=== PATIENT | female | born 1955 | race Caucasian/White ===

== ENCOUNTER 2020-11-23 21:00 | Inpatient (IN) ==
[2020-11-23] MEDS ORDERED: SODIUM CHLORIDE 0.9% 1,000 ML IV STA ×2 (21:35→23:14)
[2020-11-23 21:44] LABS: Basophils # 0.1 10*3/uL (0.0-0.2); Basophils % 0.3 % (0.0-0.8); Hematocrit 35.4 VOL% (35.7-47.0); Hemoglobin 11.7 GM/DL (12.0-16.0); Immature Granulocytes % 0.5 %; Immature Granulocytes Absolute 0.09 #; Lymphocytes # 1.4 10*3/uL (1.4-4.0); Lymphocytes % 7.2 % (21.3-54.2); Mean Corpuscular HGB Conc 33.1 GM/DL (32-36); Mean Corpuscular Volume 91.5 FL (87-102); Mean Platelet Volume 11.3 FL (9.6-12.0); Monocytes % 5.9 % (1.7-12.7); Neutrophils % 86.1 % (38.7-73.9); Platelet Count 201 T/CUMM (130-400); Red Blood Count 3.87 MC/CUMM (3.8-5.5); Red Cell Distribution Width 11.8 % (9.3-17.3); White Blood Count 19.3 T/CUMM (4-12)
[2020-11-23 22:04] LABS: INR 1.1; PT Patient Result 11.8 SECS (9.8-11.9); Partial Thromboplastin Time 25.9 SECS (23.9-33.8)
[2020-11-23 22:06] LABS: Albumin 3.6 G/DL (3.4-5.0); Bilirubin,Total 0.4 MG/DL (0.2-1.0); Calcium 8.6 MG/DL (8.5-10.1); Osmolality,Calculated 290.1 MOS/KG (273-304); Potassium 4.1 MMOL/L (3.5-5.1); Total Protein 6.3 G/DL (6.4-8.2)
[2020-11-23 23:25] LABS: Hematocrit 30.8 VOL% (35.7-47.0); Hemoglobin 10.2 GM/DL (12.0-16.0)
[2020-11-23] MEDS ORDERED: MORPHINE 4 MG/1 ML VIAL IV PRN (23:37)
[2020-11-24] MEDS: DEXTROSE 5% NACL 0.45% 1,000 ML IV SCH ×2 (03:22→10:27)
[2020-11-24] MEDS ORDERED: DEXTROSE 50% 25 GM/50 ML VIAL IV PRN (04:04)
[2020-11-24] MEDS ORDERED: GLUCAGON 1 MG VIAL IM PRN (04:04)
[2020-11-24 06:22] LABS: Basophils % 0.2 % (0.0-0.8); Hematocrit 28.2 VOL% (35.7-47.0); Hemoglobin 9.6 GM/DL (12.0-16.0); Immature Granulocytes % 0.5 %; Immature Granulocytes Absolute 0.06 #; Lymphocytes # 0.8 10*3/uL (1.4-4.0); Lymphocytes % 6.5 % (21.3-54.2); Mean Corpuscular Volume 92.2 FL (87-102); Mean Platelet Volume 11.8 FL (9.6-12.0); Monocytes % 6.4 % (1.7-12.7); Neutrophils % 86.4 % (38.7-73.9); Platelet Count 170 T/CUMM (130-400); Red Blood Count 3.06 MC/CUMM (3.8-5.5); Red Cell Distribution Width 11.9 % (9.3-17.3); White Blood Count 12.5 T/CUMM (4-12)
[2020-11-24 06:38] LABS: Bilirubin,Total 0.7 MG/DL (0.2-1.0); Calcium 7.9 MG/DL (8.5-10.1); Osmolality,Calculated 291.1 MOS/KG (273-304); Potassium 4.6 MMOL/L (3.5-5.1); Total Protein 5.7 G/DL (6.4-8.2)
[2020-11-24] MEDS: DOCUSATE SODIUM 100 MG CAPSULE PO SCH ×2 (08:45→20:26)
[2020-11-24] MEDS: PANTOPRAZOLE 40 MG TABLET PO SCH (08:45)
[2020-11-24] MEDS: LACTATED RINGERS 1,000 ML IV SCH ×2 (08:45→16:45)
[2020-11-24] MEDS: INSULIN REGULAR 100 UNIT/ML SUBCUT SCH ×4 (08:45→20:50)
[2020-11-24] MEDS ORDERED: ATORVASTATIN 40 MG TABLET PO SCH (21:00)
[2020-11-24] MEDS ORDERED: LACTATED RINGERS 1,000 ML IV ONE (23:39)
[2020-11-24 23:55] LABS: Hematocrit 23.6 VOL% (35.7-47.0); Hemoglobin 7.6 GM/DL (12.0-16.0)
[2020-11-25] MEDS ORDERED: SODIUM CHLORIDE 0.9% 1,000 ML IV PRN (00:22)
[2020-11-25] MEDS: INSULIN REGULAR 100 UNIT/ML SUBCUT SCH ×4 (07:58→20:37)
[2020-11-25] MEDS: PANTOPRAZOLE 40 MG TABLET PO SCH (08:17)
[2020-11-25] MEDS: LACTATED RINGERS 1,000 ML IV SCH ×2 (08:17)
[2020-11-25] MEDS: DOCUSATE SODIUM 100 MG CAPSULE PO SCH ×2 (08:17→20:25)
[2020-11-25] MEDS ORDERED: HYDROmorphone 2 MG/1 ML VIAL IV PRN ×2 (10:00)
[2020-11-25] MEDS: KETOROLAC 15 MG/1 ML VIAL IV SCH ×3 (11:43→22:02)
[2020-11-25 12:57] LABS: Basophils % 0.3 % (0.0-0.8); Eosinophils % 0.3 % (0.00-10.9); Immature Granulocytes % 0.7 %; Immature Granulocytes Absolute 0.06 #; Lymphocytes # 2.3 10*3/uL (1.4-4.0); Lymphocytes % 24.8 % (21.3-54.2); Mean Corpuscular HGB Conc 33.1 GM/DL (32-36); Mean Corpuscular Volume 92.7 FL (87-102); Mean Platelet Volume 11.2 FL (9.6-12.0); Monocytes % 7.7 % (1.7-12.7); Neutrophils % 66.2 % (38.7-73.9); Platelet Count 134 T/CUMM (130-400); Red Blood Count 3.58 MC/CUMM (3.8-5.5); Red Cell Distribution Width 12.8 % (9.3-17.3); White Blood Count 9.1 T/CUMM (4-12)
[2020-11-25 12:59] LABS: Hematocrit 33.2 VOL% (35.7-47.0)
[2020-11-25 13:10] LABS: Calcium 8.2 MG/DL (8.5-10.1); Osmolality,Calculated 289.6 MOS/KG (273-304); Potassium 4.7 MMOL/L (3.5-5.1)
[2020-11-25 13:15] LABS: Anisocytosis Slight; Platelet Estimate Adequate
[2020-11-25] MEDS: MONTELUKAST 10 MG TABLET PO SCH (20:25)
[2020-11-25] MEDS: ATORVASTATIN 40 MG TABLET PO SCH (20:25)
[2020-11-26] MEDS: KETOROLAC 15 MG/1 ML VIAL IV SCH ×4 (03:47→22:12)
[2020-11-26 05:57] LABS: Basophils % 0.5 % (0.0-0.8); Eosinophils # 0.1 10*3/uL (0.0-0.87); Eosinophils % 1.7 % (0.00-10.9); Hematocrit 27.4 VOL% (35.7-47.0); Hemoglobin 9.4 GM/DL (12.0-16.0); Immature Granulocytes % 0.7 %; Immature Granulocytes Absolute 0.04 #; Lymphocytes # 1.7 10*3/uL (1.4-4.0); Lymphocytes % 28.7 % (21.3-54.2); Mean Corpuscular HGB Conc 34.3 GM/DL (32-36); Mean Corpuscular Volume 89.5 FL (87-102); Mean Platelet Volume 11.3 FL (9.6-12.0); Monocytes % 8.8 % (1.7-12.7); Neutrophils % 59.6 % (38.7-73.9); Platelet Count 105 T/CUMM (130-400); Red Blood Count 3.06 MC/CUMM (3.8-5.5); Red Cell Distribution Width 12.8 % (9.3-17.3)
[2020-11-26 06:23] LABS: Calcium 8.2 MG/DL (8.5-10.1); Potassium 3.9 MMOL/L (3.5-5.1)
[2020-11-26] MEDS: INSULIN REGULAR 100 UNIT/ML SUBCUT SCH ×4 (08:17→20:44)
[2020-11-26] MEDS: DOCUSATE SODIUM 100 MG CAPSULE PO SCH ×2 (08:20→20:25)
[2020-11-26] MEDS: POLYETHYLENE GLYCOL POWDER 17 GM PACK PO SCH (08:20)
[2020-11-26] MEDS: PANTOPRAZOLE 40 MG TABLET PO SCH (08:20)
[2020-11-26] MEDS: ONDANSETRON 4 MG/2 ML VIAL IV PRN (18:46)
[2020-11-26] MEDS: ATORVASTATIN 40 MG TABLET PO SCH (20:24)
[2020-11-26] MEDS: MONTELUKAST 10 MG TABLET PO SCH (20:25)
[2020-11-27] MEDS: ONDANSETRON 4 MG/2 ML VIAL IV PRN ×3 (04:42→16:17)
[2020-11-27] MEDS: KETOROLAC 15 MG/1 ML VIAL IV SCH ×4 (04:42→22:10)
[2020-11-27 05:21] LABS: Hematocrit 30.9 VOL% (35.7-47.0); Hemoglobin 10.4 GM/DL (12.0-16.0)
[2020-11-27] MEDS: INSULIN REGULAR 100 UNIT/ML SUBCUT SCH ×4 (08:07→20:43)
[2020-11-27] MEDS: POLYETHYLENE GLYCOL POWDER 17 GM PACK PO SCH (09:31)
[2020-11-27] MEDS: DOCUSATE SODIUM 100 MG CAPSULE PO SCH ×2 (09:31→20:41)
[2020-11-27] MEDS: PANTOPRAZOLE 40 MG TABLET PO SCH (09:31)
[2020-11-27] MEDS: MONTELUKAST 10 MG TABLET PO SCH (20:40)
[2020-11-27] MEDS: ATORVASTATIN 40 MG TABLET PO SCH (20:40)
[2020-11-28] MEDS: KETOROLAC 15 MG/1 ML VIAL IV SCH ×2 (05:36→10:56)
[2020-11-28 05:38] LABS: Hematocrit 30.8 VOL% (35.7-47.0); Hemoglobin 10.3 GM/DL (12.0-16.0)
[2020-11-28] MEDS: DOCUSATE SODIUM 100 MG CAPSULE PO SCH (08:25)
[2020-11-28] MEDS: POLYETHYLENE GLYCOL POWDER 17 GM PACK PO SCH (08:25)
[2020-11-28] MEDS: PANTOPRAZOLE 40 MG TABLET PO SCH (08:26)
[2020-11-28] MEDS: INSULIN REGULAR 100 UNIT/ML SUBCUT SCH ×2 (08:34→11:44)
[2020-11-28] MEDS ORDERED: lisinopriL 10 MG TABLET PO SCH (09:00)
[2020-11-28 11:33] VITALS: BP 129/94
== END 2020-11-28 11:50 | disposition home or self-care (01) | DRG 200 ==
LOC: EDBD → EDUNIT# → N.ED 21:00 → N.EDINP 21:00 → N.CC 11-24 02:25 → N.5E 11-27 10:57
PROVIDERS: ADMIT Surgery; ATTEND Surgery

== ENCOUNTER 2021-03-11 06:02 | Inpatient (IN) ==
[2021-03-05 12:28] LABS: Basophils # 0.1 10*3/uL (0.0-0.2); Basophils % 1.1 % (0.0-0.8); Eosinophils # 0.1 10*3/uL (0.0-0.87); Eosinophils % 1.7 % (0.00-10.9); Hematocrit 39.8 VOL% (35.7-47.0); Hemoglobin 13.7 GM/DL (12.0-16.0); Immature Granulocytes % 0.4 %; Immature Granulocytes Absolute 0.02 #; Lymphocytes # 2.4 10*3/uL (1.4-4.0); Lymphocytes % 43.6 % (21.3-54.2); Mean Corpuscular HGB Conc 34.4 GM/DL (32-36); Mean Corpuscular Volume 89.8 FL (87-102); Mean Platelet Volume 11.3 FL (9.6-12.0); Monocytes % 7.6 % (1.7-12.7); Neutrophils % 45.6 % (38.7-73.9); Platelet Count 175 T/CUMM (130-400); Red Blood Count 4.43 MC/CUMM (3.8-5.5); Red Cell Distribution Width 11.4 % (9.3-17.3); White Blood Count 5.4 T/CUMM (4-12)
[2021-03-05 12:42] LABS: Bilirubin,Total 0.5 MG/DL (0.20-1.00); Calcium 8.8 MG/DL (8.5-10.1); Osmolality,Calculated 285.8 MOS/KG (273-304); Potassium 3.9 MMOL/L (3.5-5.1); Total Protein 6.9 G/DL (6.4-8.2)
[~2021-03-11 06:02] MED LIST: cefTRIAXone 1,000 MG in SODIUM CHLORIDE 0.9% 100 ML IV ONE
[2021-03-11] MEDS ORDERED: ROCURONIUM 50 MG/5 ML VIAL IV ONE ×2 (06:24→10:04)
[2021-03-11] MEDS ORDERED: MIDAZOLAM 2 MG/2 ML VIAL ONE ×3 (06:24→06:26)
[2021-03-11] MEDS ORDERED: LIDOCAINE 2% 5 ML VIAL ONE (06:24)
[2021-03-11] MEDS ORDERED: fentaNYL 100 MCG/2 ML VIAL ONE ×2 (06:24→10:04)
[2021-03-11] MEDS ORDERED: propofoL 200 MG/20 ML VIAL IV ONE (06:24)
[2021-03-11] MEDS ORDERED: ROPIVACAINE 0.5% 30 ML VIAL ONE (06:32)
[2021-03-11] MEDS ORDERED: LIDOCAINE 1% 5 ML VIAL ONE (06:39)
[2021-03-11] MEDS: LACTATED RINGERS 1,000 ML IV SCH ×5 (06:48→23:55)
[2021-03-11] MEDS ORDERED: MANNITOL 12.5 GM/50 ML VIAL IV ONE (07:06)
[2021-03-11] MEDS ORDERED: ONDANSETRON 4 MG/2 ML VIAL ONE (07:48)
[2021-03-11] MEDS ORDERED: ePHEDrine 50 MG/ML VIAL ONE (08:09)
[2021-03-11] MEDS ORDERED: PHENYLEPHRINE 1 MG/10 ML SYRINGE IV ONE (08:19)
[2021-03-11] MEDS ORDERED: DEXAMETHASONE 4 MG/1 ML VIAL ONE (10:04)
[2021-03-11] MEDS ORDERED: SEVOFLURANE 1 UNIT/15 MINUTE INH ONE (10:04)
[2021-03-11] MEDS ORDERED: LACTATED RINGERS 1,000 ML IV ONE ×2 (10:04→11:04)
[2021-03-11] MEDS ORDERED: ACETAMINOPHEN INJ 1,000 MG/100 ML VIAL IV ONE (11:11)
[2021-03-11] MEDS ORDERED: PROMETHAZINE 25 MG/1 ML VIAL IM PRN (11:24)
[2021-03-11] MEDS ORDERED: LACTULOSE 20 GM/30 ML UDCUP PO PRN (11:24)
[2021-03-11] MEDS ORDERED: diphenhydrAMINE 50 MG/1 ML VIAL IV PRN (11:28)
[2021-03-11] MEDS ORDERED: hydrALAZINE 10 MG TABLET PO PRN (11:29)
[2021-03-11 11:41] LABS: Bilirubin,Urine Negative (Negative); Blood, Urine Negative (Negative); Glucose,Urine (UA) Negative (Negative); Ketones,Urine Negative (Negative); Nitrite,Urine Negative (Negative); Protein,Urine Negative; RBC,Urine <1 /HPF (0-4); Squamous Epithelial Cell,Urine Occasional /HPF (0-10); Urine Appearance CLEAR (Clear); Urine Color Yellow (Yellow); Urine Specific Gravity 1.009 (1.001-1.035); Urine Urobilinogen < 2.0 EU/DL (0.2-1.0)
[2021-03-11] MEDS ORDERED: HYDROmorphone 2 MG/1 ML VIAL IV PRN (11:48)
[2021-03-11] MEDS ORDERED: ONDANSETRON 4 MG/2 ML VIAL IV PRN (11:48)
[2021-03-11 12:56] LABS: Basophils % 0.3 % (0.0-0.8); Eosinophils % 0.1 % (0.00-10.9); Hematocrit 39.2 VOL% (35.7-47.0); Hemoglobin 12.9 GM/DL (12.0-16.0); Immature Granulocytes % 0.6 %; Immature Granulocytes Absolute 0.07 #; Lymphocytes % 8.3 % (21.3-54.2); Mean Corpuscular HGB Conc 32.9 GM/DL (32-36); Mean Corpuscular Volume 92.7 FL (87-102); Mean Platelet Volume 10.5 FL (9.6-12.0); Monocytes % 2.6 % (1.7-12.7); Neutrophils % 88.1 % (38.7-73.9); Platelet Count 154 T/CUMM (130-400); Red Blood Count 4.23 MC/CUMM (3.8-5.5); Red Cell Distribution Width 11.7 % (9.3-17.3); White Blood Count 11.8 T/CUMM (4-12)
[2021-03-11 13:26] LABS: Calcium 8.4 MG/DL (8.5-10.1); Osmolality,Calculated 282.4 MOS/KG (273-304); Potassium 3.9 MMOL/L (3.5-5.1)
[2021-03-11] MEDS: ACETAMINOPHEN 325 MG TABLET PO SCH ×2 (14:06→20:06)
[2021-03-11] MEDS: HYDROmorphone 2 MG/1 ML VIAL IV PRN ×2 (15:27→23:55)
[2021-03-11] MEDS: ONDANSETRON 4 MG/2 ML VIAL IV PRN (18:19)
[2021-03-11] MEDS: oxyCODONE/ACETAMINOPHEN 5-325 MG TABLET PO PRN (20:07)
[2021-03-11] MEDS: ATORVASTATIN 40 MG TABLET PO SCH (20:07)
[2021-03-12] MEDS: ACETAMINOPHEN 325 MG TABLET PO SCH ×2 (03:15→21:14)
[2021-03-12 06:12] LABS: Basophils % 0.2 % (0.0-0.8); Hematocrit 34.9 VOL% (35.7-47.0); Immature Granulocytes % 0.3 %; Immature Granulocytes Absolute 0.03 #; Lymphocytes # 1.4 10*3/uL (1.4-4.0); Lymphocytes % 13.4 % (21.3-54.2); Mean Corpuscular HGB Conc 34.4 GM/DL (32-36); Mean Corpuscular Volume 92.1 FL (87-102); Mean Platelet Volume 10.9 FL (9.6-12.0); Monocytes % 8.2 % (1.7-12.7); Neutrophils % 77.9 % (38.7-73.9); Platelet Count 156 T/CUMM (130-400); Red Blood Count 3.79 MC/CUMM (3.8-5.5); Red Cell Distribution Width 11.8 % (9.3-17.3); White Blood Count 10.5 T/CUMM (4-12)
[2021-03-12 06:47] LABS: Calcium 8.3 MG/DL (8.5-10.1); Osmolality,Calculated 281.3 MOS/KG (273-304); Potassium 4.7 MMOL/L (3.5-5.1)
[2021-03-12] MEDS: LACTATED RINGERS 1,000 ML IV SCH (07:20)
[2021-03-12] MEDS: ONDANSETRON 4 MG/2 ML VIAL IV PRN (08:20)
[2021-03-12] MEDS: oxyCODONE/ACETAMINOPHEN 5-325 MG TABLET PO PRN ×4 (08:21→21:07)
[2021-03-12] MEDS: cefTRIAXone 1,000 MG in SODIUM CHLORIDE 0.9% 100 ML IV SCH ×2 (11:30→12:32)
[2021-03-12] MEDS: DOCUSATE SODIUM 100 MG CAPSULE PO SCH (12:29)
[2021-03-12] MEDS: PANTOPRAZOLE 40 MG TABLET PO SCH (12:32)
[2021-03-12] MEDS ORDERED: ALVIMOPAN 12 MG CAPSULE PO ONE (13:30)
[2021-03-12] MEDS: CITALOPRAM 20 MG TABLET PO SCH (21:06)
[2021-03-12] MEDS: ATORVASTATIN 40 MG TABLET PO SCH (21:07)
[2021-03-12] MEDS: MONTELUKAST 10 MG TABLET PO SCH (21:13)
[2021-03-12] MEDS ORDERED: ALBUTEROL 2.5 MG/3 ML NEB RESP TX ONE (22:00)
[2021-03-13] MEDS: ALVIMOPAN 12 MG CAPSULE PO SCH ×3 (01:03→20:34)
[2021-03-13] MEDS: ACETAMINOPHEN 325 MG TABLET PO SCH ×4 (03:31→21:50)
[2021-03-13 06:27] LABS: Basophils % 0.4 % (0.0-0.8); Eosinophils % 0.1 % (0.00-10.9); Hematocrit 35.2 VOL% (35.7-47.0); Hemoglobin 11.9 GM/DL (12.0-16.0); Immature Granulocytes % 0.6 %; Immature Granulocytes Absolute 0.06 #; Lymphocytes % 9.5 % (21.3-54.2); Mean Corpuscular HGB Conc 33.8 GM/DL (32-36); Mean Corpuscular Volume 92.6 FL (87-102); Mean Platelet Volume 11.1 FL (9.6-12.0); Monocytes % 7.7 % (1.7-12.7); Neutrophils % 81.7 % (38.7-73.9); Platelet Count 157 T/CUMM (130-400); Red Cell Distribution Width 11.8 % (9.3-17.3); White Blood Count 10.2 T/CUMM (4-12)
[2021-03-13 06:59] LABS: Calcium 8.2 MG/DL (8.5-10.1); Osmolality,Calculated 278.4 MOS/KG (273-304); Potassium 3.9 MMOL/L (3.5-5.1)
[2021-03-13] MEDS ORDERED: ALBUTEROL/IPRATROPIUM 3 ML NEB RESP TX PRN (07:16)
[2021-03-13] MEDS: oxyCODONE/ACETAMINOPHEN 5-325 MG TABLET PO PRN ×2 (07:56→11:44)
[2021-03-13] MEDS: MONTELUKAST 10 MG TABLET PO SCH (09:02)
[2021-03-13] MEDS: PANTOPRAZOLE 40 MG TABLET PO SCH (09:02)
[2021-03-13] MEDS: DOCUSATE SODIUM 100 MG CAPSULE PO SCH (09:02)
[2021-03-13] MEDS: ASPIRIN EC 81 MG TABLET PO SCH (09:02)
[2021-03-13] MEDS: CITALOPRAM 20 MG TABLET PO SCH ×2 (09:03→20:34)
[2021-03-13] MEDS: cefTRIAXone 1,000 MG in SODIUM CHLORIDE 0.9% 100 ML IV SCH (11:41)
[2021-03-13] MEDS: ATORVASTATIN 40 MG TABLET PO SCH (21:50)
[2021-03-14] MEDS: oxyCODONE/ACETAMINOPHEN 5-325 MG TABLET PO PRN ×2 (02:24→08:44)
[2021-03-14] MEDS: ACETAMINOPHEN 325 MG TABLET PO SCH ×2 (03:33→05:26)
[2021-03-14 05:54] LABS: Basophils # 0.1 10*3/uL (0.0-0.2); Basophils % 0.5 % (0.0-0.8); Eosinophils # 0.1 10*3/uL (0.0-0.87); Eosinophils % 0.9 % (0.00-10.9); Hematocrit 33.5 VOL% (35.7-47.0); Hemoglobin 11.5 GM/DL (12.0-16.0); Immature Granulocytes % 0.4 %; Immature Granulocytes Absolute 0.04 #; Lymphocytes # 1.5 10*3/uL (1.4-4.0); Mean Corpuscular HGB Conc 34.3 GM/DL (32-36); Mean Platelet Volume 10.5 FL (9.6-12.0); Monocytes % 8.5 % (1.7-12.7); Neutrophils % 73.7 % (38.7-73.9); Platelet Count 137 T/CUMM (130-400); Red Blood Count 3.68 MC/CUMM (3.8-5.5); Red Cell Distribution Width 11.4 % (9.3-17.3); White Blood Count 9.1 T/CUMM (4-12)
[2021-03-14 06:22] LABS: Calcium 8.9 MG/DL (8.5-10.1); Osmolality,Calculated 276.5 MOS/KG (273-304); Potassium 4.1 MMOL/L (3.5-5.1)
[2021-03-14 06:42] LABS: Hypochromasia 1+; Microcytosis 1+; Platelet Estimate Adequate
[2021-03-14] MEDS: ASPIRIN EC 81 MG TABLET PO SCH (08:44)
[2021-03-14] MEDS: DOCUSATE SODIUM 100 MG CAPSULE PO SCH (08:44)
[2021-03-14] MEDS: PANTOPRAZOLE 40 MG TABLET PO SCH (08:44)
[2021-03-14] MEDS: ALVIMOPAN 12 MG CAPSULE PO SCH (08:44)
[2021-03-14 10:37] VITALS: BP 121/70
== END 2021-03-14 12:50 | disposition home or self-care (01) | DRG 657 ==
LOC: N.OR 06:02 → N.SDSINP 06:03 → N.OB 12:25
PROVIDERS: ADMIT Surgery; ATTEND Surgery